=== PATIENT | female | born 1955 | race Caucasian/White ===

== ENCOUNTER 2023-03-11 08:45 | Emergency (ER) | payer MEDICARE, BC ==
[2023-03-11 10:11] LABS: APPEARANCE,URINE CLEAR (Clear); BILIRUBIN,URINE NEGATIVE (Negative); COLOR,URINE YELLOW (Yellow); GLUCOSE,URINE NEGATIVE (Negative); KETONES,URINE NEGATIVE (Negative); LEUKOCYTE ESTERASE,URINE NEGATIVE (Negative); NITRITE,URINE NEGATIVE (Negative); OCCULT BLOOD,URINE NEGATIVE (Negative); PH,URINE 5.5 (5.0-8.0); PROTEIN,URINE NEGATIVE (Negative); UROBILINOGEN,URINE 0.2 (0.2-1.0)
[2023-03-11] MEDS ORDERED: Cefdinir 300 MG Cap PO ONE (10:13)
[2023-03-11 10:49] VITALS: BP 125/63; PULSE 71
== END 2023-03-11 10:48 | disposition home or self-care (01) ==
LOC: JD.ED 08:45
DX: R33.9 Retention of urine, unspecified (principal); E78.00 Pure hypercholesterolemia, unspecified; I10 Essential (primary) hypertension; Z88.1 Allergy status to other antibiotic agents; Z88.2 Allergy status to sulfonamides; Z88.0 Allergy status to penicillin; Z88.8 Allergy status to other drugs, medicaments and biological substances; Z88.4 Allergy status to anesthetic agent
CPT/HCPCS: 51702; 81003; 99283; A9270; 99282

== ENCOUNTER 2023-03-12 14:03 | Emergency (ER) | payer MEDICARE, BC ==
[2023-03-12 15:19] VITALS: BP 125/66; PULSE 80
== END 2023-03-12 15:15 | disposition home or self-care (01) ==
LOC: JD.ED 14:03
DX: T83.031A Leakage of indwelling urethral catheter, initial encounter (principal); E78.00 Pure hypercholesterolemia, unspecified; I10 Essential (primary) hypertension; Z88.0 Allergy status to penicillin; Z88.2 Allergy status to sulfonamides; Z88.8 Allergy status to other drugs, medicaments and biological substances; Z88.1 Allergy status to other antibiotic agents; Z88.4 Allergy status to anesthetic agent
CPT/HCPCS: 51702; 99282; 99283

== ENCOUNTER 2023-10-29 13:25 | Emergency (ER) | payer MEDICARE, BC ==
[2023-10-29] MEDS: Proparacaine 0.5% Ophth Soln 15 ML Bottle EYELF ONE (14:43)
[2023-10-29] MEDS: Acetaminophen 325 MG Tab PO ONE (14:43)
[2023-10-29] MEDS: Fluorescein 1 MG Ophth Strip EYELF ONE (14:44)
[2023-10-29 14:51] VITALS: BP 138/88; PULSE 84
== END 2023-10-29 14:45 | disposition home or self-care (01) ==
LOC: JD.ED 13:25
DX: S05.92XA Unspecified injury of left eye and orbit, initial encounter (principal); I10 Essential (primary) hypertension; J45.909 Unspecified asthma, uncomplicated; E78.00 Pure hypercholesterolemia, unspecified; E11.9 Type 2 diabetes mellitus without complications; Z90.710 Acquired absence of both cervix and uterus; Z79.899 Other long term (current) drug therapy; Z88.2 Allergy status to sulfonamides; Z88.8 Allergy status to other drugs, medicaments and biological substances; Z88.0 Allergy status to penicillin; Z88.1 Allergy status to other antibiotic agents; W45.8XXA Other foreign body or object entering through skin, initial encounter
CPT/HCPCS: 99283; A9270; 12011; J3490